=== PATIENT | male | born 1970 | race Caucasian/White ===

== ENCOUNTER 2021-10-19 17:26 | Emergency (ER) | payer BC ==
[~2021-10-19] VITALS: Ht 180.3 cm; Wt 117.9 kg
[2021-10-19 17:45] VITALS: BP_SYST 173
--- NOTE | 2021-10-19 18:20 | NUR ---
PER MD report, patient was seen by Dr. Miller at 1820.
--- NOTE | 2021-10-19 18:22 | NUR ---
PT AMBULATED TO BED 3
--- NOTE | 2021-10-19 18:23 | NUR ---
51YO M C/O HEADACHE AND LIGHTHEADEDNESS X 2 WEEKS, WORSENING 2 DAYS AGO. DENIES SPINNING OF ROOM. ALSO COMPLAINS OF SINUS PAIN X 1 WEEK. DENIES FEVER, VOMITING. IN ED, VSS. AOX3. CLEAR BREATH SOUNDS. ERMD MADE AWARE OF PT STATUS. PMH: DM, HTN
[2021-10-19] MEDS ORDERED: LISI20TA30 PO (18:57)
[2021-10-19] MEDS ORDERED: FLUT16SP16 NS (18:57)
[2021-10-19] MEDS ORDERED: ACETAMINOPHEN 500 MG TABLET PO ONE (19:00)
[2021-10-19] MEDS ORDERED: LISINOPRIL 10 MG TABLET (PRINIVIL) PO ONE (19:00)
--- NOTE | 2021-10-19 19:12 | NUR ---
REPORT GIVEN TO CLARITZA CHRISTIANSON. ALL CARES TRANSFERRED AT THIS TIME.
--- NOTE | 2021-10-19 19:30 | NUR ---
Pt sitting up resting in bed. VSS. Patient reports no discomfort at this time. Safety precautions in place and connected to monitor.
[2021-10-19 20:10] VITALS: BP_SYST 144
--- NOTE | 2021-10-19 20:10 | NUR ---
Patient given written and verbal discharge instructions and verbalizes understanding. ER Dr. Miller discussed with patient the results and treatment provided. Patient in stable condition. ID arm band removed. Rx of flonase and lisinopril given. Patient educated on pain management and to follow up with PMD. Pain Scale 0. Opportunity for questions provided and answered. Medication side effect fact sheet provided.
== END 2021-10-19 20:10 | disposition home or self-care (01) ==
LOC: SED 17:26
DX: J34.89 Other specified disorders of nose and nasal sinuses (principal); R51.9 Headache, unspecified; R42 Dizziness and giddiness; E11.9 Type 2 diabetes mellitus without complications; I10 Essential (primary) hypertension; Z79.899 Other long term (current) drug therapy
CPT/HCPCS: 71045; 93005; 99283